=== PATIENT | female | born 1960 | race Caucasian/White ===

== ENCOUNTER 2018-03-11 21:17 | Emergency (ER) | payer BC ==
[~2018-03-11] VITALS: Ht 162.6 cm; Wt 60.8 kg
[2018-03-11] MEDS ORDERED: normal saline 1000ML IV soln IVB ONE (21:30)
[2018-03-11] MEDS ORDERED: diphenhydrAMINE 50 mg/ml inj IV ONE (21:30)
[2018-03-11] MEDS ORDERED: methylPREDNISolone sod succ 125mg/2ml vial IV ONE (21:30)
[2018-03-11] MEDS ORDERED: LORazepam 2 mg/ml vial IV ONE (21:30)
[2018-03-11 21:52] LABS: BASOPHILS % (AUTO) 0.2 % (0-1); EOSINOPHILS # (AUTO) 0.1 X10'3 (0-0.9); EOSINOPHILS % (AUTO) 1.2 % (0-6); HEMATOCRIT 40.8 % (35.0-45.0); LYMPHOCYTES % (AUTO) 51.6 % (21-51); MEAN CORPUSCULAR HEMOGLOBIN 31.5 PG (27.0-31.0); MEAN CORPUSCULAR HGB CONC 34.4 % (33.0-36.5); MEAN CORPUSCULAR VOLUME 91.4 FL (78-98); MEAN PLATELET VOLUME 9.6 FL (7.4-10.4); MONOCYTES # (AUTO) 0.7 X10'3 (0-0.9); MONOCYTES % (AUTO) 7.7 % (2-12); NEUTROPHILS # (AUTO) 3.8 X10'3 (1.8-7.7); NEUTROPHILS % (AUTO) 39.3 % (42-75); PLATELET COUNT 238 X10'3 (140-440); RED BLOOD COUNT 4.46 X10'6 (4.20-5.60); WHITE BLOOD COUNT 9.8 X10'3 (4.5-11.0)
[2018-03-11 22:07] LABS: ALANINE AMINOTRANSFERASE 25 U/L (12-78); ALBUMIN 3.8 G/DL (3.4-5.0); ALBUMIN/GLOBULIN RATIO 1.1 (1.1-1.5); ALKALINE PHOSPHATASE 66 IU/L (46-116); ANION GAP 14 (8-16); ASPARTATE AMINO TRANSFERASE 20 U/L (10-37); BILIRUBIN,TOTAL 0.3 MG/DL (0.1-1.0); BLOOD UREA NITROGEN 17 MG/DL (7-18); BUN/CREATININE RATIO 15.7 (6.6-38.0); CHLORIDE 104 MMOL/L (99-107); CREATININE 1.08 MG/DL (0.40-0.90); GLUCOSE 139 MG/DL (70-104); POTASSIUM 3.8 MMOL/L (3.5-5.1); SODIUM 139 MMOL/L (135-145); TOTAL CARBON DIOXIDE 21.4 MMOL/L (24-32); TOTAL PROTEIN 7.3 G/DL (6.4-8.2); eGFR 52 ML/MIN
[2018-03-11 22:09] VITALS: BP 133/106
== END 2018-03-12 01:55 | disposition home or self-care (01) ==
LOC: ER 21:18
DX: L50.0 Allergic urticaria (principal)
CPT/HCPCS: 36415; 71045; 80053; 84484; 85025; 93005; 96374; 96375; 99285; J1200; J2060; J2930

== ENCOUNTER 2024-06-12 12:09 | Emergency (ER) | payer BC, MEDICARE ==
[~2024-06-12] VITALS: Ht 160 cm; Wt 66.4 kg
[2024-06-12 12:13] VITALS: TEMP 97.8
[2024-06-12 12:47] LABS: BASOPHILS % (AUTO) 0.2 % (0-1); EOSINOPHILS # (AUTO) 0.1 X10'3 (0-0.9); EOSINOPHILS % (AUTO) 0.8 % (0-6); HEMATOCRIT 45.9 % (35.0-45.0); HEMOGLOBIN 15.9 g/dl (12.0-16.0); LYMPHOCYTES # (AUTO) 2.5 X10'3 (1.1-4.8); MEAN CORPUSCULAR HEMOGLOBIN 32.7 PG (27.0-31.0); MEAN CORPUSCULAR HGB CONC 34.6 g/dL (33.0-36.5); MEAN CORPUSCULAR VOLUME 94.4 FL (78-98); MEAN PLATELET VOLUME 9.2 FL (7.4-10.4); MONOCYTES # (AUTO) 0.8 X10'3 (0-0.9); MONOCYTES % (AUTO) 8.3 % (2-12); NEUTROPHILS # (AUTO) 5.9 X10'3 (1.8-7.7); NEUTROPHILS % (AUTO) 63.7 % (42-75); PLATELET COUNT 243 X10'3 (140-440); RED BLOOD COUNT 4.86 X10'6 (4.20-5.60); RED CELL DISTRIBUTION WIDTH 13.3 % (11.5-14.5); WHITE BLOOD COUNT 9.2 X10'3 (4.5-11.0)
[2024-06-12 13:00] LABS: ALBUMIN 4.3 G/DL (3.4-5.0); ANION GAP 12 (8-16); BLOOD UREA NITROGEN 13 MG/DL (7-18); BUN/CREATININE RATIO 17.6 (10.0-20.0); CALCIUM 9.6 MG/DL (8.5-10.1); CHLORIDE 104 MMOL/L (99-107); CREATININE 0.74 MG/DL (0.40-0.90); GLUCOSE 89 MG/DL (70-104); POTASSIUM 4.1 MMOL/L (3.5-5.1); SODIUM 141 MMOL/L (135-145); TOTAL CARBON DIOXIDE 25.1 MMOL/L (24-32); eCRCL 62 ML/MIN; eGFR 79 ML/MIN
[2024-06-12 13:05] LABS: APTT 29 SECONDS (22-32); PROTHROMBIN TIME 10.7 SECONDS (9.0-12.0)
[2024-06-12 15:21] VITALS: BP 119/69; PULSE 67; RESP 14; O2SAT 96
== END 2024-06-12 15:25 | disposition home or self-care (01) ==
LOC: ER 12:09
DX: R41.0 Disorientation, unspecified (principal); I63.9 Cerebral infarction, unspecified; Z88.2 Allergy status to sulfonamides
CPT/HCPCS: 36415; 70450; 70551; 71045; 80048; 82948; 85025; 85610; 85730; 93005; 99285

== ENCOUNTER 2024-08-31 05:56 | Inpatient (IN) | payer MEDICARE, BC ==
[2024-08-31] VITALS (11 sets, daily range): BP systolic 90–135; BP diastolic 46–70; PULSE 74–114; RESP 12–18; TEMP 97.8–98; O2SAT 96–98
[~2024-08-31] VITALS: Ht 160 cm; Wt 64.5 kg
[2024-08-31] MEDS: LIDOcaine 2% Viscous 15ml cup MM PRN (07:28)
[2024-08-31] MEDS: mag hydrox/Alum hydrox/simeth 30ml oral suspension PO ONE (07:29)
[2024-08-31 07:32] LABS: BASOPHILS % (AUTO) 0.2 % (0-1); EOSINOPHILS # (AUTO) 0.1 X10'3 (0-0.9); EOSINOPHILS % (AUTO) 0.8 % (0-6); HEMATOCRIT 44.9 % (35.0-45.0); HEMOGLOBIN 15.6 g/dl (12.0-16.0); LYMPHOCYTES # (AUTO) 1.3 X10'3 (1.1-4.8); LYMPHOCYTES % (AUTO) 14.2 % (21-51); MEAN CORPUSCULAR HEMOGLOBIN 32.5 PG (27.0-31.0); MEAN CORPUSCULAR HGB CONC 34.7 g/dL (33.0-36.5); MEAN CORPUSCULAR VOLUME 93.8 FL (78-98); MEAN PLATELET VOLUME 8.8 FL (7.4-10.4); MONOCYTES # (AUTO) 0.9 X10'3 (0-0.9); MONOCYTES % (AUTO) 9.5 % (2-12); NEUTROPHILS # (AUTO) 6.8 X10'3 (1.8-7.7); NEUTROPHILS % (AUTO) 75.3 % (42-75); PLATELET COUNT 231 X10'3 (140-440); RED BLOOD COUNT 4.79 X10'6 (4.20-5.60); RED CELL DISTRIBUTION WIDTH 13.1 % (11.5-14.5)
[2024-08-31 07:53] LABS: ALANINE AMINOTRANSFERASE 259 U/L (12-78); ALBUMIN 3.9 G/DL (3.4-5.0); ALKALINE PHOSPHATASE 95 IU/L (46-116); ANION GAP 7 (8-16); ASPARTATE AMINO TRANSFERASE 227 U/L (10-37); BILIRUBIN,TOTAL 0.7 MG/DL (0.1-1.0); BLOOD UREA NITROGEN 14 MG/DL (7-18); BUN/CREATININE RATIO 14.3 (10.0-20.0); CALCIUM 9.4 MG/DL (8.5-10.1); CHLORIDE 100 MMOL/L (99-107); CREATININE 0.98 MG/DL (0.40-0.90); GLUCOSE 93 MG/DL (70-104); POTASSIUM 3.9 MMOL/L (3.5-5.1); SODIUM 137 MMOL/L (135-145); TOTAL CARBON DIOXIDE 30.3 MMOL/L (24-32); TOTAL PROTEIN 7.9 G/DL (6.4-8.2); eCRCL 47 ML/MIN; eGFR 57 ML/MIN
[2024-08-31 07:59] LABS: PRO BRAIN NATRIURETIC PEPTIDE 45 PG/ML (0-125)
[2024-08-31] MEDS ORDERED: magnesium Cl slow-release 64mg tablet PO PRN (08:25)
[2024-08-31] MEDS ORDERED: magnesium sulf-water 2g/50mL 50 ML IV PRN (08:25)
[2024-08-31] MEDS ORDERED: potassium Cl 40MEQ/1/2NS 520ml 520 ML IV PRN (08:25)
[2024-08-31] MEDS ORDERED: magnesium sulf-water 4G/100mL 100 ML IV PRN (08:25)
[2024-08-31] MEDS ORDERED: ondansetron/PF 4mg/2ml inj IV PRN (08:25)
[2024-08-31] MEDS ORDERED: potassium Cl 20 mEq SR tablet PO PRN ×2 (08:25)
[2024-08-31] MEDS ORDERED: iohexol 300mg/ml 100ml inj. ONE (08:56)
[2024-08-31 09:10] LABS: LIPASE 62 U/L (16-77)
[2024-08-31] MEDS: normal saline 1000ml 1,000 ML IV SCH (09:32)
[2024-08-31] MEDS ORDERED: LEVO125T68 PO (09:46)
[2024-08-31] MEDS ORDERED: CLIN40CR VG (09:46)
[2024-08-31] MEDS ORDERED: CART1TAB5 PO (10:40)
[2024-08-31] MEDS ORDERED: CHOL20002 PO (10:40)
[2024-08-31] MEDS ORDERED: MV-M1CAP18 PO (10:41)
[2024-08-31] MEDS ORDERED: UBID100C16 PO (10:44)
[2024-08-31] MEDS ORDERED: CALC600T14 PO (10:44)
[2024-08-31] MEDS ORDERED: ROSU5TAB51 PO (10:45)
[2024-08-31] MEDS ORDERED: metoprolol tartrate 1mg/ml inj IV PRN (12:30)
[2024-08-31] MEDS ORDERED: nitroGLYCERIN 0.4mg SUBLingual tab SL PRN (12:30)
[2024-08-31] MEDS ORDERED: aminophylline 250mg/10ml inj. IV PRN (12:30)
[2024-08-31 13:10] LABS: THYROID STIMULATING HORMONE 3.25 ulU/ml (0.34-4.50)
[2024-08-31] MEDS: regadenoson 0.4mg/5ml syringe IV PRN (15:33)
[2024-08-31 19:56] LABS: CHOL/HDL RATIO 3.3 (0.00-4.99); CHOLESTEROL 165 MG/DL (0-200); HDL CHOLESTEROL 50 MG/DL (35-60); LDL CHOLESTEROL 81 MG/DL (50-100); TRIGLYCERIDES 221 MG/DL (20-135)
[2024-08-31 20:00] LABS: HEMOGLOBIN A1C 5.5 % (4.5-6.2)
[2024-08-31] MEDS: heparin, porcine 5000 units/ml vial SQ SCH (20:00)
[2024-08-31] MEDS: temazepam 15mg capsule PO ONE (21:20)
[2024-09-01 02:00] VITALS: BP 110/69; PULSE 82; RESP 18; TEMP 98; O2SAT 97
[2024-09-01 06:00] VITALS: BP 154/60; PULSE 62; RESP 13; TEMP 97.8; O2SAT 95
[2024-09-01] MEDS: levoTHYROXINE 125mcg tablet PO SCH (07:50)
[2024-09-01 08:00] VITALS: RESP 13; O2SAT 95
[2024-09-01 08:06] LABS: BASOPHILS % (AUTO) 0.1 % (0-1); EOSINOPHILS # (AUTO) 0.1 X10'3 (0-0.9); EOSINOPHILS % (AUTO) 1.9 % (0-6); HEMATOCRIT 41.2 % (35.0-45.0); HEMOGLOBIN 14.4 g/dl (12.0-16.0); LYMPHOCYTES # (AUTO) 1.2 X10'3 (1.1-4.8); LYMPHOCYTES % (AUTO) 18.9 % (21-51); MEAN CORPUSCULAR HEMOGLOBIN 33.2 PG (27.0-31.0); MEAN CORPUSCULAR HGB CONC 35.1 g/dL (33.0-36.5); MEAN CORPUSCULAR VOLUME 94.7 FL (78-98); MONOCYTES # (AUTO) 0.7 X10'3 (0-0.9); NEUTROPHILS # (AUTO) 4.1 X10'3 (1.8-7.7); NEUTROPHILS % (AUTO) 67.1 % (42-75); PLATELET COUNT 219 X10'3 (140-440); RED BLOOD COUNT 4.35 X10'6 (4.20-5.60); RED CELL DISTRIBUTION WIDTH 13.1 % (11.5-14.5); WHITE BLOOD COUNT 6.1 X10'3 (4.5-11.0)
[2024-09-01 08:25] LABS: ALANINE AMINOTRANSFERASE 156 U/L (12-78); ALBUMIN 3.4 G/DL (3.4-5.0); ALBUMIN/GLOBULIN RATIO 0.9 (1.1-1.5); ALKALINE PHOSPHATASE 79 IU/L (46-116); ANION GAP 7 (8-16); ASPARTATE AMINO TRANSFERASE 76 U/L (10-37); BILIRUBIN,TOTAL 0.7 MG/DL (0.1-1.0); BLOOD UREA NITROGEN 12 MG/DL (7-18); BUN/CREATININE RATIO 14.5 (10.0-20.0); CALCIUM 8.1 MG/DL (8.5-10.1); CHLORIDE 103 MMOL/L (99-107); CREATININE 0.83 MG/DL (0.40-0.90); GLUCOSE 91 MG/DL (70-104); POTASSIUM 4.1 MMOL/L (3.5-5.1); SODIUM 139 MMOL/L (135-145); TOTAL CARBON DIOXIDE 28.7 MMOL/L (24-32); TOTAL PROTEIN 7.3 G/DL (6.4-8.2); eCRCL 55 ML/MIN; eGFR 69 ML/MIN
[2024-09-01 09:25] LABS: HBSAG SCREEN Negative (Negative); HEP A AB, IGM Negative (Negative); HEP B CORE AB, IGM Negative (Negative); HEPATITIS C VIRUS ANTIBODY Non Reactive (Non Reactive)
[2024-09-01] MEDS ORDERED: PANT-47 PO (10:25)
== END 2024-09-01 11:05 | disposition home or self-care (01) | DRG 392 ==
LOC: ER 05:57 → ED HOLD 08:31 → PCU 3S 21:30
PROVIDERS: ADMIT Internal Medicine; ATTEND Internal Medicine
PROC: 4A02XM4 Measurement of Cardiac Total Activity, External Approach (ICD-10-PCS; principal; 2024-08-31)
PROC: 3E033HZ Introduction of Radioactive Substance into Peripheral Vein, Percutaneous Approach (ICD-10-PCS; 2024-08-31)
PROC: BW211ZZ Computerized Tomography (CT Scan) of Abdomen and Pelvis using Low Osmolar Contrast (ICD-10-PCS; 2024-08-31)
DX: K29.70 Gastritis, unspecified, without bleeding (principal); B17.9 Acute viral hepatitis, unspecified; F10.90 Alcohol use, unspecified, uncomplicated; R74.01 Elevation of levels of liver transaminase levels; K76.0 Fatty (change of) liver, not elsewhere classified; Z60.2 Problems related to living alone; E03.9 Hypothyroidism, unspecified; Z90.49 Acquired absence of other specified parts of digestive tract; Z88.2 Allergy status to sulfonamides; Z88.1 Allergy status to other antibiotic agents; Z88.5 Allergy status to narcotic agent; Z79.899 Other long term (current) drug therapy; Z98.51 Tubal ligation status; Z90.710 Acquired absence of both cervix and uterus
CPT/HCPCS: 36415; 71045; 74177; 74181; 78452; 80053; 80061; 80074; 83036; 83690; 83880; 84443; 84484; 85025; 87081; 93005; 93017; 93306; 96374; 99285; A6258; A9500; G0378; J1644; J2785; J7030; Q9967

== ENCOUNTER 2025-07-04 12:23 | Outpatient (CLI) | payer MEDICARE, BC ==
[~2025-07-04 12:23] MED LIST: CALC600T14 PO; CART1TAB5 PO; CHOL20002 PO; CLIN40CR VG; LEVO125T68 PO; MV-M1CAP18 PO; PANT-47 PO; ROSU5TAB51 PO; UBID100C16 PO
[2025-07-04 12:57] LABS: CREATININE 0.87 MG/DL (0.40-0.90); TOTAL CARBON DIOXIDE 29.0 MMOL/L (24-32); eGFR 65 ML/MIN
== END 2025-07-04 23:59 | disposition home or self-care (01) ==
LOC: LAB 12:23
PROVIDERS: ATTEND Internal Medicine Gastroenterology
DX: K74.69 Other cirrhosis of liver (principal)
CPT/HCPCS: 36415; 80053